=== PATIENT | female | born 1980 ===

== ENCOUNTER 2024-03-20 06:29 | Day surgery (SDC) | payer OTHER ==
[2024-03-20] VITALS (21 sets, daily range): BP systolic 100–120; BP diastolic 51–73
[~2024-03-20] VITALS: Ht 172.7 cm; Wt 91.4 kg
[~2024-03-20 06:29] MED LIST: BELBUCA75 MCG BC; CYCL10 PO; Cabergoline0.5 MG PO; IBUP800 PO; LIDO700A20 TOP; NARCAN4 M1 NS
[2024-03-20] MEDS ORDERED: CeFAZolin Sodium 2,000 MG in NS 100 ML IV SCH (07:00)
[2024-03-20] MEDS ORDERED: Lactated Ringer's 1,000 ML IV SCH ×2 (07:00→11:05)
[2024-03-20] MEDS ORDERED: CeFAZolin Sodium 2,000 MG VIAL ONE (07:33)
[2024-03-20] MEDS ORDERED: Midazolam HCl 1MG / ML 2ML Vial IV ONE (07:40)
[2024-03-20] MEDS ORDERED: propofoL 20 ML IV ONE (07:52)
[2024-03-20] MEDS ORDERED: Lidocaine HCl 2% 20 ML MDV ONE (07:52)
[2024-03-20] MEDS ORDERED: Rocuronium Bromide 10 MG/ML 5ML Injection IV ONE (07:52)
[2024-03-20] MEDS ORDERED: Dexamethasone Sod Phos 10 MG/ML 1ML VIAL ONE (07:52)
[2024-03-20] MEDS ORDERED: FentaNYL Citrate 50 MCG/ML 5 ML Injection ONE (07:52)
[2024-03-20] MEDS ORDERED: Ondansetron HCl 2 MG / ML 2ML Vial ONE (07:52)
--- NOTE | 2024-03-20 07:54 | NUR ---
Patient confirms NPO status and agrees with scheduled surgery. Pre-Op teaching done. Pt verbalizes understanding. Lungs clear T/O to Auscultation. History, Chart, Medications and Allergies reviewed before start of procedure.Patient confirms NPO status and agrees with scheduled surgery. AT BEDSIDE, PATIENT EXTREMELY NERVOUS AND TEARY EYED. AFTER ALL CONSENTS SIGHNED MID[place]ALAM GIVEN WITH GOOD RESULTS
[2024-03-20] MEDS ORDERED: Bupivacaine 0.5% HCl 5 MG/ML 30MLVIAL ONE (07:59)
[2024-03-20] MEDS ORDERED: EpiNEPhrine 1 MG/1 ML 1ML Vial ONE (07:59)
--- NOTE | 2024-03-20 08:03 | NUR ---
PATIENT FEELING "MUCH BETTER"
[2024-03-20] MEDS ORDERED: Estradiol Vag Cream 0.1 MG/G 42.5 GM Tube VAG ONE (08:15)
[2024-03-20] MEDS ORDERED: Neostigmine Methylsulfate 5MG/5ML SYR ONE (10:06)
[2024-03-20] MEDS ORDERED: Glycopyrrolate 0.2 MG/ML 5ML VIAL ONE (10:06)
[2024-03-20] MEDS ORDERED: FentaNYL Citrate 50 MCG/ML 2 ML Injection ONE ×2 (10:43→11:01)
[2024-03-20] MEDS ORDERED: Ketorolac Tromethamine 30mg Vial ONE (10:43)
[2024-03-20] MEDS ORDERED: Ondansetron HCl 2 MG / ML 2ML Vial IV PRN (11:05)
[2024-03-20] MEDS ORDERED: OxyCODONE HCL 5 MG TAB PO PRN (11:05)
[2024-03-20] MEDS ORDERED: HYDROcodone 10-APAP 325 TAB PO PRN (11:05)
[2024-03-20] MEDS ORDERED: FLU VACC TS2024-25(6MOS UP)/PF 45 MCG/0.5 ML SYRINGE IM SCH (11:05)
[2024-03-20] MEDS ORDERED: FentaNYL Citrate 50 MCG/ML 2 ML Injection IV PRN (11:05)
[2024-03-20] MEDS ORDERED: Simethicone 80 MG Chew PO PRN (11:05)
[2024-03-20] MEDS ORDERED: Acetaminophen 325 MG TABLET PO PRN (11:05)
[2024-03-20] MEDS ORDERED: DiphenhydrAMINE HCL 25 MG Cap PO PRN (11:05)
[2024-03-20] MEDS ORDERED: Ketorolac Tromethamine 30mg Vial IV SCH (12:00)
--- NOTE | 2024-03-20 12:29 | NUR ---
PT ARRIVED TO ROOM VIA GOURNEY. SLID TO HOSPITAL BED. A&O X4, SLEEPY BUT AROUSABLE TO VOICE, VSS, DENIES SOB. LAP SITES X2 C/D/I, CLOSED WITH WOUND GLUE, OPEN TO AIR. MIN BLOOD ON PAD. HEATING PAD OFFERED TO PT AND PLACED ON ABDOMEN ABOVE COVERS.
[2024-03-20 14:17] LABS: BASOPHILS ABSOLUTE AUTO 0.02 K/mm3 (0.00-0.23); BASOPHILS PERCENT AUTO 0 % (0-2); EOSINOPHILS PERCENT AUTO 0 % (0-6); Hematocrit 40.6 % (33.0-51.0); Hemoglobin 13.6 g/dL (11.5-16.0); IMMATURE GRAN ABSOLUTE AUTO 0.06 K/mm3 (0.00-0.10); IMMATURE GRAN PERCENT AUTO 0 % (0-1); LYMPHOCYTES ABSOLUTE AUTO 0.54 K/mm3 (0.84-5.20); LYMPHOCYTES PERCENT AUTO 3 % (21-46); MONOCYTES ABSOLUTE AUTO 0.21 K/mm3 (0.16-1.47); MONOCYTES PERCENT AUTO 1 % (4-13); Mean Corpuscular HGB 29.2 pg (26.0-34.0); Mean Corpuscular HGB Conc 33.5 g/dL (31.5-36.5); Mean Corpuscular Volume 87 fL (80-100); Mean Platelet Volume 11.8 fL (9.1-12.4); NEUTROPHILS ABSOLUTE AUTO 15.49 K/mm3 (1.96-9.15); NEUTROPHILS PERCENT AUTO 95 % (41-73); Platelet Count 199 K/mm3 (150-400); RDW Coefficient Variation 12.6 % (11.7-14.2); RDW Standard Deviation 40.1 fL (35.1-46.3); Red Blood Cell Count 4.66 M/mm3 (3.80-5.20); White Blood Cell Count 16.32 K/mm3 (4.00-11.30)
--- NOTE | 2024-03-20 17:23 | NUR ---
SHIFT SUMMARY POD 0 LAVH. LAP SITES X2 C/D/I. DRINKING FLUIDS WITHOUT DIFFICULTY. OWENS REMOVED. HAS TAKEN SMALL AMOUNTS OF JELLO. WALKING SBA TO BATHROOM. WAITING FOR FIRST POST OP VOID AT THIS TIME. PAIN MANAGED PER EMAR. VSS. A&O X4.
[2024-03-20] MEDS ORDERED: Norco 5-325 Ta1 EACH PO (17:48)
[2024-03-21 02:43] VITALS: BP 101/63
--- NOTE | 2024-03-21 06:44 | NUR ---
NOC SUMMARY- PT PAIN MANAGED WELL. PT IS VOIDING WITH LITTLE SPOTTING ON ALEX PAD. DRESSING C/D/I. PT RESTED WITH CPAP. PT HERAT RATE DID DIP INTO THE HIGH 40'S AT TIMES. SPO2 REMAINED >90%. PT CURRENTLY RESTING QUIETLY. CALL LIGHT IN REACH.
[2024-03-21] MEDS ORDERED: Ibuprofen 400 MG Tab PO PRN (08:00)
[2024-03-21 08:01] VITALS: BP 110/65
[2024-03-21 10:40] VITALS: BP 116/79
--- NOTE | 2024-03-21 10:50 | NUR ---
DISCHARGE NOTE POD 1 LAP HYSTER. LAP SITES X2 C/D/I. A&O X4. VSS. EATING/DRINKING/VOIDING WITHOUT ISSUE. AMBULATING TO BATHROOM INDEPENDENTLY. MIN BLOOD ON PAD. VERBALLY EXPRESSED UNDERSTANDING OF DISCHARGE INSTRUCTIONS. WHEELED OUT TO HUSBANDS CAR VIA WHEELCHAIR.
== END 2024-03-21 10:30 | disposition home or self-care (01) ==
LOC: ORSCMMR 06:29 → ORD 08:00 → SURS 11:56 → ORSCMMR 03-21 10:30 → ORD 04-10 08:00
PROVIDERS: Obstetrics & Gynecology
PROC: 0UT9FZZ Resection of Uterus, Via Natural or Artificial Opening With Percutaneous Endoscopic Assistance (ICD-10-PCS; principal; 2024-03-20 08:00)
PROC: 0UT7FZZ Resection of Bilateral Fallopian Tubes, Via Natural or Artificial Opening With Percutaneous Endoscopic Assistance (ICD-10-PCS; principal; 2024-03-20 08:00)
DX: N81.4 Uterovaginal prolapse, unspecified (principal); R10.2 Pelvic and perineal pain; N72 Inflammatory disease of cervix uteri; N73.6 Female pelvic peritoneal adhesions (postinfective); E66.9 Obesity, unspecified; Z68.31 Body mass index [BMI] 31.0-31.9, adult
CPT/HCPCS: 36415; 85025; 88307; 94762; A9270; J0171; J0690; J1100; J1885; J2250; J2405; J2704; J2710; J3010; J7120

== ENCOUNTER 2025-05-06 06:41 | Emergency (ER) | payer OTHER ==
[~2025-05-06] VITALS: Ht 172.7 cm; Wt 79.4 kg
[~2025-05-06 06:41] MED LIST changes: +Norco 5-325 Ta1 EACH PO
[2025-05-06 07:59] LABS: BASOPHILS ABSOLUTE AUTO 0.03 K/mm3 (0.00-0.23); BASOPHILS PERCENT AUTO 0 % (0-2); EOSINOPHILS ABSOLUTE AUTO 0.06 K/mm3 (0.00-0.68); EOSINOPHILS PERCENT AUTO 1 % (0-6); Hematocrit 39.4 % (33.0-51.0); Hemoglobin 13.6 g/dL (11.5-16.0); IMMATURE GRAN ABSOLUTE AUTO 0.01 K/mm3 (0.00-0.10); IMMATURE GRAN PERCENT AUTO 0 % (0-1); LYMPHOCYTES ABSOLUTE AUTO 1.61 K/mm3 (0.84-5.20); LYMPHOCYTES PERCENT AUTO 23 % (21-46); MONOCYTES ABSOLUTE AUTO 0.49 K/mm3 (0.16-1.47); MONOCYTES PERCENT AUTO 7 % (4-13); Mean Corpuscular HGB Conc 34.5 g/dL (31.5-36.5); Mean Corpuscular Volume 85 fL (80-100); NEUTROPHILS ABSOLUTE AUTO 4.97 K/mm3 (1.96-9.15); NEUTROPHILS PERCENT AUTO 69 % (41-73); NRBC ABSOLUTE 0.00 K/mm3 (0.00-0.02); NRBC Auto 0.0 /100 WBC (0.0-0.2); Platelet Count 215 K/mm3 (150-400); RDW Coefficient Variation 12.6 % (11.7-14.2); RDW Standard Deviation 38.6 fL (35.1-46.3)
[2025-05-06 08:13] LABS: Alanine Aminotransfer (ALT/SGP 16.0 U/L (12-78); Albumin, Blood 3.8 g/dL (3.4-5.0); Albumin/Globulin Ratio 1.4 (0.8-1.8); Anion Gap 9.0 mmol/L (3-11); Aspartate Aminotrans (AST/SGOT 11.0 U/L (12-37); Bilirubin, Total 1.0 mg/dL (0.1-1.0); Blood Urea Nitrogen 10.0 mg/dL (8-24); CO2, Blood 26.0 mmol/L (21-32); Calcium, Blood 9.4 mg/dL (8.5-10.1); Chloride, Blood 106.0 mmol/L (98-108); Creatinine, Blood 0.72 mg/dL (0.40-1.00); Globulin, Blood 2.8 g/dL (2.2-4.0); Glucose, Blood 78.0 mg/dL (70-99); Potassium, Blood 3.5 mmol/L (3.5-5.5); Sodium, Blood 137.0 mmol/L (136-145); Total Protein, Blood 6.6 g/dL (6.4-8.2)
[2025-05-06] MEDS ORDERED: LOMAIRA8 MG PO (08:20)
[2025-05-06] MEDS ORDERED: Lidocaine 2% Viscous Soln 15 ML UDC PO ONE (09:50)
[2025-05-06 12:00] VITALS: BP 119/64
== END 2025-05-06 12:10 | disposition home or self-care (01) ==
LOC: ER 06:41
PROVIDERS: Emergency Medicine
DX: R10.13 Epigastric pain (principal); Z88.2 Allergy status to sulfonamides; Z88.3 Allergy status to other anti-infective agents; Z88.1 Allergy status to other antibiotic agents; Z91.040 Latex allergy status; Z88.0 Allergy status to penicillin; Z88.8 Allergy status to other drugs, medicaments and biological substances; Z79.899 Other long term (current) drug therapy
CPT/HCPCS: 76705; 80053; 83690; 84484; 85025; 93005; 93010; 99284-25; A9270